=== PATIENT | female | born 1990 | race Caucasian/White ===

== ENCOUNTER → 2018-05-24 | Outpatient (CLI) | payer BC ==
[2018-05-24 12:11] LABS: HEMATOCRIT 35.3 % (37-47); HEMOGLOBIN 11.7 g/dL (12.0-16.0)
== END | disposition home or self-care (01) ==
LOC: C.LAB1850 10:08
PROVIDERS: ATTEND Obstetrics & Gynecology
DX: O09.293 Supervision of pregnancy with other poor reproductive or obstetric history, third trimester (principal); Z3A.00 Weeks of gestation of pregnancy not specified

== ENCOUNTER → 2018-06-05 | Outpatient (CLI) | payer BC ==
[~2018-06-05] MED LIST: ASPI-461 PO; PRENTAB26 PO
== END | disposition home or self-care (01) ==
LOC: C.LABPBG 14:14
PROVIDERS: ATTEND Obstetrics & Gynecology
DX: O09.293 Supervision of pregnancy with other poor reproductive or obstetric history, third trimester (principal)

== ENCOUNTER 2018-06-09 21:15 | Outpatient (CLI) | payer BC ==
[~2018-06-09] VITALS: Ht 165.1 cm; Wt 90.0 kg
[2018-06-09] MEDS ORDERED: PRENTAB26 PO (22:30)
[2018-06-09] MEDS ORDERED: ASPI-461 PO (22:32)
[2018-06-09 22:36] VITALS: Ht 165.1 cm; Wt 90.0 kg
== END 2018-06-10 01:45 | disposition home or self-care (01) ==
LOC: C.LD 21:15 → C.OPB 21:15
PROVIDERS: ATTEND Obstetrics & Gynecology
DX: O46.93 Antepartum hemorrhage, unspecified, third trimester (principal); R42 Dizziness and giddiness; Z3A.30 30 weeks gestation of pregnancy